=== PATIENT | female | born 1990 | race African-American/Black ===

== ENCOUNTER 2017-11-15 11:40 | Emergency (ER) | payer OTHER ==
[~2017-11-15] VITALS: Ht 167.6 cm; Wt 84.4 kg
[2017-11-15 11:44] VITALS: BP 111/71; Ht 167.6 cm; Wt 84.4 kg
== END 2017-11-15 13:45 | disposition home or self-care (01) ==
LOC: ED 11:40
DX: O26.891 Other specified pregnancy related conditions, first trimester (principal); R21 Rash and other nonspecific skin eruption; R11.0 Nausea; Z3A.11 11 weeks gestation of pregnancy